=== PATIENT | male | born 1985 | race Caucasian/White ===

== ENCOUNTER 2018-11-12 19:59 | Emergency (ER) | payer OTHER ==
[2018-11-12] MEDS ORDERED: BACITRACIN 0.9 GM PACKET TP ONE (20:07)
[2018-11-12] MEDS ORDERED: DIPHTH,PERTUSS(ACELL),TET 0.5 ML DISP.SYRIN IM ONE ×3 (20:07→21:13)
--- NOTE | 2018-11-12 20:07 | PDOC ---
Rapid Medical Evaluation Time Seen by Provider: 11/12/18 20:05 Medical Evaluation: 11/12/18 20:05 CC: scratched by dog PE: superficial scratches to right upper extremity Orders: Td Patient to proceed to ER for evaluation. Discharge Disposition - Diagnosis Scratches - Referrals - Patient Instructions - Post Discharge Activity
[2018-11-12 20:30] VITALS: BP 137/89; PULSE 86; TEMP 98.6; BMI 24.2
[2018-11-12] MEDS ORDERED: TETRACAINE 0.5% HCL 0.6ML DROPPER.BOTTLE OS ONE (20:53)
--- NOTE | 2018-11-12 21:03 | PDOC ---
History of Present Illness - General Chief Complaint: Bite Stated Complaint: JOB Injury DOG BITE Time Seen by Provider: 11/12/18 20:05 - History of Present Illness Initial Comments: 11/12/18 20:59 33 y/o M w/o CM presents for evaluation of L eye irritation after removing a contact lense Past History - Past Medical History Allergies/Adverse Reactions: Allergies Allergy/AdvReac Type Severity Reaction Status Date / Time No Known Allergies Allergy Verified 11/12/18 20:07 Home Medications: Ambulatory Orders Tobramycin 0.3% Ophth Soln [Tobrex Ophthalmic Solution -] 1 drop OD Q4HWA 5 Days #1 bottle 11/12/18 COPD: No Diabetes: Yes - Psycho Social/Smoking Cessation Hx Smoking History: Never smoked Review of Systems - Review of Systems HEENTM: Yes: See HPI, Tearing *Physical Exam - Vital Signs Last Vital Signs Temp Pulse Resp BP Pulse Ox 98.6 F 86 18 137/89 99 11/12/18 20:05 11/12/18 20:05 11/12/18 20:05 11/12/18 20:05 11/12/18 20:05 - Physical Exam Comments: 11/12/18 21:00 L eye was instilled with tetracaine and stained with floricine, there is a very small corneal abrasion at the 6 o'clock position Medical Decision Making - Medical Decision Making 11/12/18 21:01 tobramycin for corneal abrasion Discharge - Discharge Information Problems reviewed: Yes Clinical Impression/Diagnosis: Scratches, Corneal abrasion due to contact lens Condition: Stable Disposition: HOME - Admission No - Additional Discharge Information Prescriptions: Tobramycin 0.3% Ophth Soln [Tobrex Ophthalmic Solution -] 1 drop OD Q4HWA 5 Days #1 bottle - Follow up/Referral Referrals: Tia Arceo MD [Staff Physician] - - Patient Discharge Instructions Patient Printed Discharge Instructions: DI for Corneal Abrasion, Corneal Abrasion Additional Instructions: Please use the antibiotic drops as directed and without fail follow up with optomology in 1-2 days. Return to the emergency room should symptoms worsen. - Post Discharge Activity
--- NOTE | 2018-11-12 21:18 | PDOC ---
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 He is not current on tetanus Supfical scratches on R UE 11/12/18 21:12 Past History - Past Medical History Allergies/Adverse Reactions: Allergies Allergy/AdvReac Type Severity Reaction Status Date / Time No Known Allergies Allergy Verified 11/12/18 20:07 Home Medications: Ambulatory Orders Amox-Tr/K Cl [Augmentin - 875Mg Tablet] 1 tab PO BID #20 tablet 11/12/18 COPD: No Diabetes: Yes - Psycho Social/Smoking Cessation Hx Smoking History: Never smoked Review of Systems - Review of Systems Integumentary: Yes: See HPI *Physical Exam - Vital Signs Last Vital Signs Temp Pulse Resp BP Pulse Ox 98.6 F 86 18 137/89 99 11/12/18 20:05 11/12/18 20:05 11/12/18 20:05 11/12/18 20:05 11/12/18 20:05 - Physical Exam Comments: 11/12/18 21:13 There are multiple superficial scratches on the R UE without any indication of bleeding, NVID Medical Decision Making - Medical Decision Making 11/12/18 21:13 The pt has the ability to contact the owners who can provide proof of vaccination and who also can observe the animal. There are no clear breaks in the skin but the pt states the scratches occurred from the teeth of the animal. Will prescribe augmentin and have pt f/u with PCP and contact owners of the animal. Tetanus updated. Discharge - Discharge Information Problems reviewed: Yes Clinical Impression/Diagnosis: Scratches, Dog bite Clinical Impression/Diagnosis: (Ruled Out): Corneal abrasion due to contact lens Condition: Stable Disposition: HOME - Admission Yes - Additional Discharge Information Prescriptions: Amox-Tr/K Cl [Augmentin - 875Mg Tablet] 1 tab PO BID #20 tablet - Follow up/Referral Referrals: Tia Arceo MD [Staff Physician] - - Patient Discharge Instructions Patient Printed Discharge Instructions: How to Care for a Domestic Animal Bite Additional Instructions: Please take the antibiotics as directed and without fail follow up with your primary care physician in 1-2 days for further evaluation and treatment. Keep the areas clean and dry with regular soap and water and left open to air as much as possible. Please without fail contact the studio assistant of the animal and obtain the vaccination record of the dog that bit you. Return to the emergency department for further issues. - Post Discharge Activity
== END 2018-11-12 21:26 | disposition home or self-care (01) ==
LOC: JERFT 19:59
PROC: 3E0234Z Introduction of Serum, Toxoid and Vaccine into Muscle, Percutaneous Approach (ICD-10-PCS; principal; 2018-11-12)
DX: E11.9 Type 2 diabetes mellitus without complications (principal); W54.0XXA Bitten by dog, initial encounter; Y93.89 Activity, other specified; Y92.008 Other place in unspecified non-institutional (private) residence as the place of occurrence of the external cause; Y99.0 Civilian activity done for income or pay
CPT/HCPCS: 90715; 99281-25